=== PATIENT | male | born 1980 | race Caucasian/White ===

== ENCOUNTER 2017-05-09 18:08 | Inpatient (IN) | payer SELFPAY ==
[~2017-05-09] VITALS: Ht 185.4 cm; Wt 123.9 kg
[2017-05-09 18:14] VITALS: BP 157/100
[2017-05-09 18:32] LABS: BASO % 0.2 % (0.0-1.0); EOS # 0.1 10*3/uL (0.0-0.4); EOS % 0.5 % (1.0-4.0); HEMATOCRIT 43.6 % (42.0-52.0); HEMOGLOBIN 15.2 g/dl (14.0-18.0); LYMPH # 1.2 10*3/uL (1.3-4.4); LYMPH % 9.5 % (27.0-41.0); MEAN CELL VOLUME 95.6 fl (80.0-94.0); MEAN CORPUSCULAR HGB 33.3 pg (27.0-31.0); MEAN CORPUSCULAR HGB CONC 34.9 g/dl (33.0-37.0); MONO # 1.1 10*3/uL (0.1-1.0); MONO % 8.8 % (3.0-9.0); NEUT # 10.1 10*3/uL (2.3-7.9); NEUT % 80.7 % (47.0-73.0); PLATELET COUNT AUTOMATED 230 10*3/uL (130-400); RED BLOOD COUNT 4.56 10*6/uL (4.50-5.90); RED CELL DISTRI WIDTH 11.4 % (0-14.5); WHITE BLOOD COUNT 12.5 10*3/uL (4.8-10.8)
[2017-05-09 18:48] LABS: ALBUMIN 3.5 gm/dl (3.1-4.5); ALKALINE PHOSPHATASE 68 U/L (45-117); BUN 10 mg/dl (7-24); CHLORIDE 101 mmol/L (98-107); CREATININE 0.86 mg/dL (0.70-1.30); LIPASE 82 U/L (73-393); POTASSIUM 3.7 mmol/L (3.5-5.1); SGOT/AST 23 IU/L (3-35); SGPT/ALT 31 U/L (12-78); SODIUM 136 mmol/L (136-145); TOTAL PROTEIN 8.2 gm/dL (6.4-8.2)
[2017-05-09 19:11] VITALS: BP 127/86
[2017-05-09 19:13] LABS: BILIRUBIN 2+ (NEGATIVE); BLOOD 3+ (NEGATIVE); CLARITY SL CLOUDY (CLEAR); COLOR YELLOW (YELLOW); GLUCOSE NEGATIVE (NEGATIVE); KETONE 3+ (NEGATIVE); LEUKO ESTERASE NEGATIVE (NEGATIVE); NITRITE NEGATIVE (NEGATIVE); SPECIFIC GRAVITY 1.025 (1.005-1.030); UROBILINOGEN >= 8.0 E.U./dl (0.2-1.0)
[2017-05-09 19:18] LABS: BACTERIA TRACE; MUCOUS TRACE; RBC 16-20 rbc/hpf (0-2); WBC 0-2 wbc/hpf (0-5)
[2017-05-09 21:45] VITALS: BP 152/90
--- NOTE | 2017-05-09 21:45 | NUR ---
A 36, admitted to , under the services of RICK Alexander DO with a diagnosis of DIVERTICULITIS. Chief complaint is ABDOMINAL PAIN. Patient arrived via bed from ER. Monitor applied. Initial assessment completed. Vital signs taken and recorded. RICK ALEXANDER DO notified of admission to the unit. Orders received. See assessment for past medical history, medications and allergies. Patient and/or family oriented to unit. [facility] visitation policy reviewed. Clothing/patient valuable form completed. KENRICK CAMEJO
[2017-05-09] MEDS ORDERED: NEXIUM 24HR22.3 MG PO (21:55)
--- NOTE | 2017-05-09 22:07 | NUR ---
PT MEDICATED WITH NORCO PRN FOR ABD PAIN RATED 5/10. UPON FURTHER ASSESSMENT PT STATES EFFECITVE
--- NOTE | 2017-05-09 22:23 | NUR ---
PER ER NURSE DR. CASILLAS WAS CONSULTED ON PATIENT FROM ER.
[2017-05-10] VITALS: BP 103/72
--- NOTE | 2017-05-10 02:11 | NUR ---
Requested and medicated with Diladid at 0200 for complaints of abdomen pain rated as a 5-6/10. Will monitor effectiveness.
--- NOTE | 2017-05-10 03:15 | NUR ---
Diladid effective to decrease pain and allow to rest quietly. Resp easy and regular. Will continue to monitor.
[2017-05-10 06:40] LABS: BASO % 0.2 % (0.0-1.0); EOS # 0.1 10*3/uL (0.0-0.4); EOS % 0.7 % (1.0-4.0); HEMATOCRIT 38.1 % (42.0-52.0); HEMOGLOBIN 13.3 g/dl (14.0-18.0); LYMPH # 1.4 10*3/uL (1.3-4.4); LYMPH % 11.8 % (27.0-41.0); MEAN CELL VOLUME 95.5 fl (80.0-94.0); MEAN CORPUSCULAR HGB 33.3 pg (27.0-31.0); MEAN CORPUSCULAR HGB CONC 34.9 g/dl (33.0-37.0); MEAN PLATELET VOLUME 9.4 fl (9.6-12.3); MONO # 1.2 10*3/uL (0.1-1.0); MONO % 10.3 % (3.0-9.0); NEUT # 8.8 10*3/uL (2.3-7.9); NEUT % 76.7 % (47.0-73.0); PLATELET COUNT AUTOMATED 210 10*3/uL (130-400); RED BLOOD COUNT 3.99 10*6/uL (4.50-5.90); RED CELL DISTRI WIDTH 11.4 % (0-14.5); WHITE BLOOD COUNT 11.5 10*3/uL (4.8-10.8)
--- NOTE | 2017-05-10 07:01 | NUR ---
Requested and medicated [facility] Diladid at 0615 for complaints of abdomen pain rated as a 7-8/10. Diladid minimally effective to decrease pain. Will continue to monitor.
[2017-05-10 07:07] LABS: ACT PARTIAL THROMBO TIME 27.9 SECONDS (20.8-31.5); INTERNATIONAL NORM RATIO 1.1 (2.0-3.5)
[2017-05-10 07:10] LABS: ALBUMIN 2.9 gm/dl (3.1-4.5); ALKALINE PHOSPHATASE 53 U/L (45-117); BUN 9 mg/dl (7-24); CHLORIDE 104 mmol/L (98-107); CHOLESTEROL 111 mg/dL (<200); CREATININE 0.82 mg/dL (0.70-1.30); HDL CHOLESTEROL 26 mg/dl (40-60); LDL CHOLESTEROL 70 mg/dL (9-159); MAGNESIUM 2.1 mg/dL (1.5-2.1); PHOSPHOROUS 2.5 mg/dL (2.5-4.9); POTASSIUM 3.3 mmol/L (3.5-5.1); SGOT/AST 16 IU/L (3-35); SGPT/ALT 24 U/L (12-78); SODIUM 138 mmol/L (136-145); TOTAL PROTEIN 6.9 gm/dL (6.4-8.2); TRIGLYCERIDES 76 mg/dl (<150); VLDL CHOLESTEROL 15 mg/dL (6-40)
[2017-05-10 07:15] LABS: THYROID STIM HORMONE (HS) 0.525 uIU/ml (0.358-4.75)
[2017-05-10 07:28] LABS: VITAMIN D, 25-HYDROXY 8.1 ng/mL (30-100)
[2017-05-10 08:00] VITALS: BP 138/84
--- NOTE | 2017-05-10 08:30 | NUR ---
Supervisor [employer] in to talk to patient. Patient states lives at HOME [address] with A ROOM MATE. There are 10-15 steps in the home. Physician: NO PCP Pharmacy: [facility] Home health services: NONE Patient's level of ADLs: INDEPENDENT Patient has working utilities: YES DME: NONE Follow-up physician's appointment after d/c: WILL BE MADE PRIOR TO DC Does patient want to access PORTAL?: Discharge plan HOME. [facility]AN[facility] BACK PT IS SELF PAY. DOESNT KNOW IF HE'D QUALIFY FOR MEDICAID BUT MOTHER PRESENT AND THINKS HE WILL. WILL NOTIFY MED ASSIST.
--- NOTE | 2017-05-10 08:33 | NUR ---
MEDICATED PATIENT WITH PRN PAIN MEDICATION WILL REASSESS FOR EFFECTIVENESS OF MEDICATION
--- NOTE | 2017-05-10 09:30 | NUR ---
PATIENT RESTING WITH EYES CLOSED MEDICATION EFFECTIVE
--- NOTE | 2017-05-10 09:30 | NUR ---
MESSAGE LEFT FOR TAWANNA AT [facility] ASSIST TO SPEAK WITH PT ABOUT POSSIBLE MEDICAID.
[2017-05-10 12:00] VITALS: BP 139/86
--- NOTE | 2017-05-10 13:37 | NUR ---
MEDICATED PATIENT WITH PRN MEDICATION WILL REASSESS FOR EFFECTIVENESS OF MEDICATION
--- NOTE | 2017-05-10 14:37 | NUR ---
PATIENT RESTING EYES CLOSED RESP [facility] FMAILY AT BEDSIDE CALL LIGHT IN REACH MEDICATION EFFECTIVE
--- NOTE | 2017-05-10 15:16 | NUR ---
MEDICATIED PATIENT WITH PRN MEDICATION FOR PAIN OF AN 8 WILL REASSESS FOE EFFECTIVENSS OF MEDICATION
[2017-05-10 16:01] VITALS: BP 140/75
--- NOTE | 2017-05-10 16:30 | NUR ---
PATIENT SLEEPING CALL LIGHT IN REACH RESP [facility] FAMILY AT BEDSIDE WAITING FOR BED AT [facility]
--- NOTE | 2017-05-10 17:37 | NUR ---
MEDICATED PATIENT WITH PRN MEDICATION FOR ABDOMINAL PAIN WILL REASSESS FOR EFFECTIVENESS OF MEDICATION
--- NOTE | 2017-05-10 18:30 | NUR ---
PATIENT RESTING WITH CALL LIGHT IN REACH FAMILY AT BEDSIDE RESP [facility]
[2017-05-10 20:00] VITALS: BP 139/91
--- NOTE | 2017-05-10 22:13 | NUR ---
PT C/O OF NAUSEA, PRN ZOFRAN WAS ONLY EFFECTIVE FOR A SHORT PEROID OF TIME PER PT. PRN PHENERGAN GIVE PER ORDER
--- NOTE | 2017-05-10 23:00 | NUR ---
PT RESTING IN BED IN EYES CLOSED, NO COMPLAINTS AT THIS TIME
[2017-05-11] VITALS: BP 136/89
[2017-05-11 04:00] VITALS: BP 130/72
--- NOTE | 2017-05-11 07:50 | NUR ---
IN BED AWAKE ALERT AND ORIENTED X3, PT C/O PAIN TO MID ABD AND REQUESTS PAIN MEDS. GIVEN IV DILAUDID AT THIS TIME. NO S/S OF DISTRESS. SEE ASSESS. WILL CONT TO MONITOR. CALL LIGHT IN REACH.
[2017-05-11 08:00] VITALS: BP 136/86
--- NOTE | 2017-05-11 08:50 | NUR ---
AFTER RECEIVING IV DILAUDID PT REPORTS PAIN OF 4/10. WILL CONT TO MONITOR. CALL LIGHT IN REACH.
--- NOTE | 2017-05-11 09:28 | NUR ---
REPORT CALLED TO [facility].
--- NOTE | 2017-05-11 09:35 | NUR ---
PT C/O PAIN OF 05/12. IV DILAUDID GIVEN AT THIS TIME PRIOR TO PT LEAVING HOSPITAL FOR COMFORT.
--- NOTE | 2017-05-11 10:00 | NUR ---
PT TRANSFERRED TO [facility] VIA [employer] AT THIS TIME. HEART MONITOR RETURNED TO FLOOR. IV PATENT AND RUNNING NS WITH A K-RUN.
== END 2017-05-11 10:00 | disposition short-term general hospital (02) | DRG 872 ==
LOC: ED 18:08 → 4E 20:37 → EDHOLD 20:37 → 4E 20:37
PROVIDERS: Hospitalist; Nurse Practitioner Family; ADMIT Internal Medicine
DX: A41.9 Sepsis, unspecified organism (principal); E44.0 Moderate protein-calorie malnutrition; K57.20 Diverticulitis of large intestine with perforation and abscess without bleeding; K21.9 Gastro-esophageal reflux disease without esophagitis; E66.9 Obesity, unspecified; G43.909 Migraine, unspecified, not intractable, without status migrainosus; E55.9 Vitamin D deficiency, unspecified; E87.6 Hypokalemia; Z68.36 Body mass index [BMI] 36.0-36.9, adult; Z82.49 Family history of ischemic heart disease and other diseases of the circulatory system; Z87.442 Personal history of urinary calculi; Z79.899 Other long term (current) drug therapy; Z71.6 Tobacco abuse counseling; Z72.0 Tobacco use

== ENCOUNTER 2020-11-21 23:15 | Emergency (ER) | payer SELFPAY ==
[~2020-11-21 23:15] MED LIST: NEXIUM 24HR22.3 MG PO
[2020-11-21 23:54] LABS: MEAN CELL VOLUME 98.3 fl (80.0-94.0); MEAN CORPUSCULAR HGB 33.5 pg (27.0-31.0); MEAN CORPUSCULAR HGB CONC 34.1 g/dl (33.0-37.0); MEAN PLATELET VOLUME 9.4 fl (9.6-12.3); PLATELET COUNT AUTOMATED 192 10*3/uL (130-400); RED BLOOD COUNT 4.68 10*6/uL (4.50-5.90); RED CELL DISTRI WIDTH 11.9 % (0-14.5); WHITE BLOOD COUNT 12.9 10*3/uL (4.8-10.8)
[2020-11-22 00:09] LABS: ALBUMIN 3.6 gm/dl (3.1-4.5); ALKALINE PHOSPHATASE 68 U/L (45-117); BUN 8 mg/dl (7-24); CHLORIDE 103 mmol/L (98-107); CREATININE 1.15 mg/dL (0.70-1.30); LIPASE 38 U/L (73-393); POTASSIUM 3.6 mmol/L (3.5-5.1); SGOT/AST 14 IU/L (3-35); SGPT/ALT 29 U/L (12-78); SODIUM 139 mmol/L (136-145); TOTAL PROTEIN 7.9 gm/dL (6.4-8.2)
[2020-11-22 00:14] LABS: PLATELET SUFFICIENCY NORMAL (NORMAL); TOTAL CELLS COUNTED 100 #CELLS
[2020-11-22 00:51] LABS: BILIRUBIN 1+ (Negative); BLOOD 1+ (Negative); CLARITY Clear (Clear); COLOR Orange (Yellow); GLUCOSE Negative (Negative); KETONE 1+ (Negative); LEUKO ESTERASE Trace (Negative); NITRITE Negative (Negative); SPECIFIC GRAVITY >= 1.030 (1.001-1.030)
[2020-11-22 01:12] LABS: RBC 16-20 rbc/hpf (0-2)
[2020-11-22] MEDS ORDERED: FLAGYL500 MG PO (02:06)
[2020-11-22] MEDS ORDERED: CIPRO500 MG PO (02:06)
[2020-11-22] MEDS ORDERED: HYDROCODONE-AC1 EAC1 PO (02:06)
[2020-11-22] MEDS ORDERED: ZOFRAN4 MG PO (02:06)
== END 2020-11-22 02:30 | disposition home or self-care (01) ==
LOC: ED 23:15
PROVIDERS: Physician Assistant
DX: N39.0 Urinary tract infection, site not specified (principal); K57.32 Diverticulitis of large intestine without perforation or abscess without bleeding; Z79.899 Other long term (current) drug therapy

== ENCOUNTER 2021-09-06 23:44 | Emergency (ER) | payer SELFPAY ==
[~2021-09-06] VITALS: Ht 182.8 cm; Wt 122.5 kg
[~2021-09-06 23:44] MED LIST changes: +CIPRO500 MG PO; +FLAGYL500 MG PO; +HYDROCODONE-AC1 EAC1 PO; +ZOFRAN4 MG PO
== END 2021-09-07 00:25 | disposition home or self-care (01) ==
LOC: ED 23:44
DX: B34.9 Viral infection, unspecified (principal); Z20.822 Contact with and (suspected) exposure to COVID-19

== ENCOUNTER 2024-12-22 20:32 | Emergency (ER) | payer SELFPAY ==
[2024-12-22] MEDS ORDERED: methylPREDNISolone sod succ 125 MG VIAL IM ONE (23:40)
[2024-12-22] MEDS ORDERED: PREDNISONE20 M1 PO (23:46)
== END 2024-12-23 00:05 | disposition home or self-care (01) ==
LOC: ED 20:32
DX: G51.0 Bell's palsy (principal); R42 Dizziness and giddiness; F17.200 Nicotine dependence, unspecified, uncomplicated; Z79.899 Other long term (current) drug therapy